=== PATIENT | male | born 1950 | race Caucasian/White ===

== ENCOUNTER 2016-07-08 10:16 | Outpatient (CLI) | payer MEDICARE ==
--- NOTE | 2016-07-08 11:15 | DIAGNOSTIC IMAGING REPORT ---
PROCEDURE: CT LOW-DOSE LUNG CA SCREENING CLINICAL INDICATION: LUNG CA SCREENING TECHNIQUE: Low-dose helical CT images of the lungs without contrast were obtained and reconstructed at 2.5 mm intervals. MIP reformations in coronal and sagittal planes were created. Radiation dose 1.39 mGy. COMPARISON: Oldest available comparison: FINDINGS: NODULES: Location: Right upper lobe; image location: 50; size: 2 mm; composition: Non solid Location: Right upper lobe; image location: 51; size: 3-mm; composition: Non solid Location: Right lower lobe; image location 77; size: 4 mm; composition non solid Location: Left upper lobe; image location: 54; size: 2 mm; composition: Non solid Location: Left major fissure; image location: 62; size: 2 mm; composition: non solid Location: Left upper lobe; image location: 71; size: 4 mm; composition non solid OTHER LUNG FINDINGS: Hyperinflation. AIRWAY: Branches normally without narrowing or endobronchial nodule. PLEURA: No effusions, thickening, or pneumothorax. AORTA AND GREAT VESSELS: Normal caliber, minor atherosclerotic calcification. PULMONARY ARTERIES: Normal. . HEART AND PERICARDIUM: Normal size without effusion, thickening. LYMPH NODES: No enlarged nodes visible. THORACIC SPINE: No suspicious lesion. Mild degenerative changes. CHEST WALL: Normal. VISUALIZED UPPER ABDOMEN: Normal. IMPRESSION: 1. Several bilateral non solid pulmonary nodules (4 mm or less) 2. Hyperinflation 3. Category 2. Benign appearing nodules. Recommend annual screening with LDCT in [address] scans at this facility use dose modulation, iterative reconstruction, and/or weight-based dosing when appropriate to reduce radiation dose to as low as reasonably achievable.
== END 2016-07-08 23:00 ==
LOC: CT SRH 10:16
DX: Z12.2 Encounter for screening for malignant neoplasm of respiratory organs (principal); F17.200 Nicotine dependence, unspecified, uncomplicated